=== PATIENT | female | born 1945 | race Caucasian/White ===

== ENCOUNTER 2017-12-23 12:47 | Emergency (ER) | payer OTHER ==
[~2017-12-23] VITALS: Ht 152.4 cm; Wt 59.0 kg
[~2017-12-23 12:47] MED LIST: ASPI81TA25 PO; CHLOTAB PO; EPP3/2 IM; LPR25 PO; RANI75TA7 PO; RANITAB33 PO
[2017-12-23 12:58] VITALS: TEMP 36.4; Ht 152.4 cm; Wt 59.0 kg
[2017-12-23] MEDS ORDERED: SODIUM CHLORIDE 0.9% 1000ML 1,000 ML IV STA (14:25)
--- NOTE | 2017-12-23 14:32 | EMERGENCY ROOM VISIT NOTE ---
History Report prepared by Jorge: Fermin Kebede Under the Supervision of: Dr. Fan Perez M.D. First contact with patient: 14:16 Chief Complaint: DIZZY Stated Complaint: CAN'T FOCUS, LIGHT HEADED, REFERRED BY DOC Nursing Triage Summary: pt states blurred vision and dizziness intermittent for the past week. Pt denies n/v, denies numbness or weakness, states right eye droop from . No neurological deficits noted. History of Present Illness The patient is a 72 year old female who presents to the Emergency Room with complaints of intermittent dizziness that began about 1 week ago. 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 Over this week, she has been intermittently feeling episodes of lightheadedness and some blurry vision whenever she stands or walks around. However, today this sensation has been constant since she woke up. She also has a headache which she describes as a pressure to the front of her head. She denies any palpitations, chest pain, shortness of breath, abdominal pain, weakness, or numbness. She denies any difficulty swallowing or speaking. She has been keeping up with her fluids. She denies any history of diabetes or any blood thinner use. She notes that over the past three weeks she has been having an intermittent fever with a cough as well. She denies any ear pain or ringing. Source of History: patient, spouse/significant other Onset: 1 week ago Position: other (global) Symptom Intensity: moderate Quality: other (Dizziness) Timing: intermittent Modifying Factors (Worsening): exertion (walking), movement (standing) Associated Symptoms: + fevers, + cough, No chest pain, No SOB, No abdominal pain, No weakness, No numbness Note: She has some mild blurring of her vision. Review of Systems See HPI for pertinent positives & negatives. A total of 10 systems reviewed and were otherwise negative. Past Medical & Surgical Medical Problems: (1) Congenital abnormality of eye Old medical records were reviewed. Nurse's notes were reviewed and I agree with. Family History Omitted secondary to the patient's age. Social History Smoking Status: Never Smoker Smokeless Tobacco Use: No Alcohol Use: none Drug Use: none Marital Status: in relationship Housing Status: lives alone Occupation Status: retired Current/Historical Medications Scheduled Amoxicillin & Pot Clavulanate (Augmentin 875-125 mg), 875 MG PO BID Scheduled PRN Epinephrine (Epipen 2-Tayo), 1 INJ IM Allergies Coded Allergies: BEE STING (Verified Allergy, Severe, THROAT SWELLING, 12/23/17) Physical Exam Vital Signs Date Time Temp Pulse Resp B/P (MAP) Pulse Ox O2 Delivery O2 Flow Rate FiO2 12/23/17 16:41 60 19 143/72 94 12/23/17 14:47 60 19 12/23/17 14:31 143/72 12/23/17 14:17 64 17 94 12/23/17 14:01 148/79 12/23/17 13:47 65 9 94 12/23/17 13:31 131/76 12/23/17 13:22 68 12/23/17 13:17 140/79 12/23/17 12:58 36.4 69 16 150/76 95 Physical Exam General: Non-ill appearing older female in no acute distress. HEENT: Normal cephalic atraumatic. There is a baseline droop with mild dysconjugate gaze to the right eye from 3 previous surgeries. Pupils are equal round and reactive to light. Extraocular movements are intact. Oropharynx is pink with moist mucous membranes. No swelling of the mouth lips or tongue. Neck: Supple with a midline trachea. No meningeal signs or stiffness, no JVD or bruits. No Stridor. Chest: Clear to auscultation bilaterally. No wheezes or rhonchi. No increased work of breathing. Heart: regular rate and rhythm. Abdomen: Soft nontender, nondistended without rebound guarding or rigidity. Extremities: No cyanosis clubbing or edema. No calf tenderness or assymetry Spine/Back. Non tender to palpation. No CVA tenderness Skin: Good turgor without rashes. Neurologic exam: Cranial nerves two through 12 are intact. Motor and sensation are intact and symmetrical throughout. Medical Decision & Procedures ER Provider Diagnostic Interpretation: Radiology results as stated below per my review and radiologist interpretation: HEAD WITHOUT CONTRAST (CT) CLINICAL HISTORY: 72 years-old Female presenting with eval for headache, dizzy. TECHNIQUE: Multidetector CT imaging of the head was performed without the use of intravenous contrast. IV contrast: None. A dose lowering technique was used consistent with the principles of ALARA (as low as reasonably achievable). COMPARISON: 07/02/2013. CT DOSE (mGy.cm): The estimated cumulative dose is 690.05 mGycm. 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 Ventricles and sulci normal in size. Brain parenchyma normal in appearance with preserved weinstein-white differentiation. No mass effect or midline shift. No hemorrhage or acute territorial infarct. No extra-axial fluid collection. Paranasal sinuses and mastoid air cells clear. Calvarium intact. IMPRESSION: 1. No acute intracranial abnormality. Electronically signed by: Carlos June M.D. 12/23/2017 3:08 PM Dictated Date/Time: 12/23/2017 3:06 PM Laboratory Results 12/23/17 14:46 Red Blood Count 4.86, Mean Corpuscular Volume 88.7, Mean Corpuscular Hemoglobin 30.7, Mean Corpuscular Hemoglobin Concent 34.6, Mean Platelet Volume 9.8, Neutrophils (%) (Auto) 55.8, Lymphocytes (%) (Auto) 36.4, Monocytes (%) (Auto) 5.6, Eosinophils (%) (Auto) 1.7, Basophils (%) (Auto) 0.2, Neutrophils # (Auto) 5.00, Lymphocytes # (Auto) 3.26, Monocytes # (Auto) 0.50, Eosinophils # (Auto) 0.15, Basophils # (Auto) 0.02 12/23/17 14:46 Test 12/23/17 14:46 White Blood Count 8.96 K/uL (4.8-10.8) Red Blood Count 4.86 M/uL (4.2-5.4) Hemoglobin 14.9 g/dL (12.0-16.0) Hematocrit 43.1 % (37-47) Mean Corpuscular Volume 88.7 fL (80-100) Mean Corpuscular Hemoglobin 30.7 pg (25-34) Mean Corpuscular Hemoglobin Concent 34.6 g/dl (32-36) Platelet Count 335 K/uL (130-400) Mean Platelet Volume 9.8 fL (7.4-10.4) Neutrophils (%) (Auto) 55.8 % Lymphocytes (%) (Auto) 36.4 % Monocytes (%) (Auto) 5.6 % Eosinophils (%) (Auto) 1.7 % Basophils (%) (Auto) 0.2 % Neutrophils # (Auto) 5.00 K/uL (1.4-6.5) Lymphocytes # (Auto) 3.26 K/uL (1.2-3.4) Monocytes # (Auto) 0.50 K/uL (0.11-0.59) Eosinophils # (Auto) 0.15 K/uL (0-0.5) Basophils # (Auto) 0.02 K/uL (0-0.2) RDW Standard Deviation 46.3 fL (36.4-46.3) RDW Coefficient of Variation 14.2 % (11.5-14.5) Immature Granulocyte % (Auto) 0.3 % Immature Granulocyte # (Auto) 0.03 K/uL (0.00-0.02) Prothrombin Time 10.4 SECONDS (9.0-12.0) Prothromb Time International Ratio 1.0 (0.9-1.1) Activated Partial Thromboplast Time 28.9 SECONDS (21.0-31.0) Partial Thromboplastin Ratio 1.1 Anion Gap 8.0 mmol/L (3-11) Est Creatinine Clear Calc Drug Dose 57.6 ml/min Estimated GFR () 97.7 Estimated GFR (Non- 84.3 BUN/Creatinine Ratio 14.6 (10-20) Calcium Level 8.9 mg/dl (8.5-10.1) Total Bilirubin 0.2 mg/dl (0.2-1) Direct Bilirubin < 0.1 mg/dl (0-0.2) Aspartate Amino Transf (AST/SGOT) 10 U/L (15-37) Alanine Aminotransferase (ALT/SGPT) 18 U/L (12-78) Alkaline Phosphatase 75 U/L (45-117) Total Creatine Kinase 47 U/L (26-192) Creatine Kinase MB 1.1 ng/ml (0.5-3.6) Creatine Kinase MB Ratio 2.3 (0-3.0) Troponin I < 0.015 ng/ml (0-0.045) Total Protein 8.2 gm/dl (6.4-8.2) Albumin 3.8 gm/dl (3.4-5.0) Lipase 117 U/L (73-393) Laboratory studies as stated above per my review. Medications Administered Medications (Trade) Dose Ordered Sig/Isabella Route Start Time Stop Time Status Last Admin Dose Admin Sodium Chloride 1,000 ml @ 999 mls/hr Q1H1M STAT IV 12/23/17 14:25 12/23/17 15:25 DC 12/23/17 15:04 999 MLS/HR Amoxicillin/ Clavulanate Potassium (Augmentin Tab) 875 mg ONE ONCE PO 12/23/17 16:15 12/23/17 16:16 DC 12/23/17 16:15 875 MG ECG Per My Interpretation Indication: other (Dizziness) Rate (beats per minute): 67 Rhythm: normal sinus Findings: no acute ischemic change, other (No PVC, poor r-wave progression) Comparison ECG Date: Jul 02, 2013 Change: no significant change ED Course 1416: Past medical records reviewed. The patient was evaluated in room C1, and a complete history and physical examination were performed. 1425: Ordered Sodium Chloride 1000 ml @ 999 mls/hr IV 1611: The patient informed me that she has been having a lot of sinus congestion , which I then told her that this could be contributing to her dizziness. 1615: Ordered Augmentin Tab 875 mg PO 1630: Upon reevaluation, the patient is resting. I discussed the results and treatment plan with her. She verbalized agreement of the treatment plan. The patient was discharged home. Medical Decision Differentials include, but are not limited to; arrhythmia, anemia, intracranial process, infection, and electrolyte or metabolic abnormality. This patient comes in as described above. She was placed in room C1. She is here for treatment evaluation of dizziness. She feels lightheaded occasionally when she stands. She has a history of ablation and tachycardia of some sort in the past but has not felt any chest pain or shortness of breath. She has had a lot of sinus symptoms and wonders if it could be related to that. She looks well on exam and has a baseline normal neurologic exam for her. CAT scan of the head is unremarkable. EKG shows no evidence to suggest acute coronary syndrome or arrhythmia. She has no acute electrolyte or metabolic abnormalities. She feels much better would like to go home. I will put her on Augmentin for possible sinus disease and have her rest and drink plenty of fluids and follow-up with her regular doctor. At this point there is no evidence to suggest arrhythmia or significant cardiac disease or neurologic process. She desires to go home and will be discharged with close follow-up with her primary doctor. Medication Reconcilliation Current Medication List: was personally reviewed by me Blood Pressure Screening Patient's blood pressure: Elevated blood pressure Blood pressure disposition: Elevated BP felt to be situational Impression Primary Impression: Dizziness Additional Impression: Sinusitis Scribe Attestation The scribe's documentation has been prepared under my direction and personally reviewed by me in its entirety. I confirm that the note above accurately reflects all work, treatment, procedures, and medical decision making performed by me. Departure Information Dispostion Home / Self-Care Prescriptions Amoxicillin & Pot Clavulanate (Augmentin 875-125 mg) 1 Tab Tab 875 MG PO BID for 10 Days, #20 TAB Prov: Fan Perez M.D. 12/23/17 Referrals Rosa Pritchett M.D. (PCP) Forms HOME CARE DOCUMENTATION FORM, IMPORTANT VISIT INFORMATION Patient Instructions My [facility] Additional Instructions Rest. Drink plenty of fluids. Return if: Increasing pain, worsening of symptoms, fever or chills, any new problems or concerns. Use Augmentin 875 mg twice a day for 10 days. You also use a decongestant. Problem Qualifiers
[2017-12-23 15:03] LABS: BASO % 0.2 %; BASO ABS # 0.02 K/uL (0-0.2); EOS % 1.7 %; EOS ABS # 0.15 K/uL (0-0.5); HEMATOCRIT 43.1 % (37-47); HEMOGLOBIN 14.9 g/dL (12.0-16.0); IG# 0.03 K/uL (0.00-0.02); LYMPH % 36.4 %; LYMPH ABS # 3.26 K/uL (1.2-3.4); MEAN CELL VOLUME 88.7 fL (80-100); MEAN CORPUSCULAR HEMOGLOBIN 30.7 pg (25-34); MEAN CORPUSCULAR HGB CONC 34.6 g/dl (32-36); MEAN PLATELET VOLUME 9.8 fL (7.4-10.4); MONO % 5.6 %; NEUT % 55.8 %; PLATELET COUNT 335 K/uL (130-400); RED CELL DISTRIBUTION WIDTH CV 14.2 % (11.5-14.5); RED CELL DISTRIBUTION WIDTH SD 46.3 fL (36.4-46.3); WHITE BLOOD COUNT 8.96 K/uL (4.8-10.8)
--- NOTE | 2017-12-23 15:09 | DIAGNOSTIC IMAGING REPORT ---
HEAD WITHOUT CONTRAST (CT) CLINICAL HISTORY: 72 years-old Female presenting with eval for headache, dizzy. TECHNIQUE: Multidetector CT imaging of the head was performed without the use of intravenous contrast. IV contrast: None. A dose lowering technique was used consistent with the principles of ALARA (as low as reasonably achievable). COMPARISON: 07/02/2013. CT DOSE (mGy.cm): The estimated cumulative dose is 690.05 mGycm. 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 Ventricles and sulci normal in size. Brain parenchyma normal in appearance with preserved weinstein-white differentiation. No mass effect or midline shift. No hemorrhage or acute territorial infarct. No extra-axial fluid collection. Paranasal sinuses and mastoid air cells clear. Calvarium intact. IMPRESSION: 1. No acute intracranial abnormality. Electronically signed by: Carlos June M.D. 12/23/2017 3:08 PM Dictated Date/Time: 12/23/2017 3:06 PM
[2017-12-23 15:12] LABS: PTT PATIENT 28.9 SECONDS (21.0-31.0)
[2017-12-23 15:20] LABS: ALBUMIN 3.8 gm/dl (3.4-5.0); BLOOD UREA NITROGEN 10 mg/dl (7-18); CALCIUM 8.9 mg/dl (8.5-10.1); CARBON DIOXIDE 24 mmol/L (21-32); GLUCOSE 88 mg/dl (70-99); LIPASE 117 U/L (73-393); POTASSIUM 3.7 mmol/L (3.5-5.1); SODIUM 137 mmol/L (136-145)
[2017-12-23 15:22] LABS: ALT/SGPT 18 U/L (12-78); AST/SGOT 10 U/L (15-37); CREATININE 0.72 mg/dl (0.60-1.20)
[2017-12-23 15:31] LABS: ALKALINE PHOSPHATASE 75 U/L (45-117); CKMB 1.1 ng/ml (0.5-3.6); TOTAL PROTEIN 8.2 gm/dl (6.4-8.2)
[2017-12-23] MEDS ORDERED: AMOX875T PO (16:14)
[2017-12-23] MEDS ORDERED: AMOXICILLIN/CLAVULANATE TAB 875 MG TAB PO ONE (16:15)
[2017-12-23 16:41] VITALS: BP 143/72; PULSE 60; O2SAT 94
== END 2017-12-23 16:41 | disposition home or self-care (01) ==
LOC: C.EDB 12:49 → C.EDC 16:41
DX: R42 Dizziness and giddiness (principal); J32.9 Chronic sinusitis, unspecified; Z91.030 Bee allergy status

== ENCOUNTER 2019-04-19 23:57 | Inpatient (IN) ==
--- OUTSIDE RECORDS SUMMARY | 2019-04-20 | External Medical Summary | Continuity of Care Document ---
:1945 Author Name Juanis Duke Address Unavailable Unavailable , Care Team Providers Name Role Phone Unavailable Unavailable Unavailable [place] Unavailable Unavailable Problems Active medical history not documented Allergies and Adverse Reactions Allergy history not documented Medications Medications not documented Procedures Procedures not documented Immunizations Immunizations not documented Plan of Treatment Planned Observations Planned Goals not documented Results No Known Results Results not documented
[2019-04-20] MEDS ORDERED: SODIUM CHLORIDE 0.9% 1000ML 1,000 ML IV SCH (00:15)
[2019-04-20 00:26] LABS: Basophils # (auto) 0.01 K/uL (0-0.2); Basophils % (auto) 0.1 %; Eosinophils # (auto) 0.12 K/uL (0-0.5); Eosinophils % (auto) 1.4 %; Hematocrit (blood only) 44.5 % (37-47); Hemoglobin 15.4 g/dL (12.0-16.0); Immature Granulocytes # (auto) 0.02 K/uL (0.00-0.02); Immature Granulocytes % (auto) 0.2 %; Lymphocytes # (auto) 3.73 K/uL (1.2-3.4); Lymphocytes % (auto) 43.5 %; Mean Corpuscular Hgb Conc 34.6 g/dL (32-36); Mean Corpuscular Volume 88.8 fL (80-100); Mean Platelet Volume 10.2 fL (7.4-10.4); Monocytes # (auto) 0.68 K/uL (0.11-0.59); Monocytes % (auto) 7.9 %; Neutrophils # (auto) 4.02 K/uL (1.4-6.5); Neutrophils % (auto) 46.9 %; Platelet Count 297 K/uL (130-400); RDW Coefficient of Variation 14.6 % (11.5-14.5); RDW Standard Deviation 47.3 fL (36.4-46.3); Red Blood Count 5.01 M/uL (4.2-5.4); White Blood Count 8.58 K/uL (4.8-10.8)
[2019-04-20 00:31] LABS: Prothrombin Time 10.1 Seconds (9.0-12.0)
[2019-04-20 00:44] LABS: Alanine Aminotransferase 23 U/L (12-78); Albumin Level 3.8 gm/dl (3.4-5.0); Aspartate Aminotransferase 17 U/L (15-37); BUN Creatinine Ratio 13.4 (10-20); Bilirubin Direct < 0.1 mg/dl (0-0.2); Blood Urea Nitrogen 11 mg/dl (7-18); Carbon Dioxide 25 mmol/L (21-32); Chloride 105 mmol/L (98-107); Est GFR (African American) 86.7; Est GFR (Non-African American) 74.8; Glucose 100 mg/dl (70-99); Magnesium 2.3 mg/dl (1.8-2.4); Potassium 3.7 mmol/L (3.5-5.1); Sodium 137 mmol/L (136-145)
[2019-04-20 00:49] LABS: Alkaline Phosphatase 95 U/L (45-117); Bilirubin,Total 0.3 mg/dl (0.2-1); Total Protein 7.8 gm/dl (6.4-8.2); Troponin I < 0.015 ng/ml (0-0.045)
[2019-04-20] MEDS ORDERED: ASPIRIN CHEW 324 MG PO STA (01:57)
--- NOTE | 2019-04-20 02:41 | History & Physical Report ---
Date of Service April 20, 2019 Assessment & Plan (1) TIA (transient ischemic attack): hx old CVA on CAT scan initially Hypertension, elevated secondary to intracranial process paroxysmal VT status post ablation nonocclusive CAD as per records hyperlipidemia, not on statin Rx prediabetes, most recent outpatient hemoglobin A1c of 6 last July 2016 ongoing tobacco abuse Medical telemetry Neurochecks MRI/MRA of the brain RE TIA symptoms Aspirin for secondary stroke prevention until new stroke definitively ruled out. Neurology consult RE transient right-sided numbness, weakness Permissive hypertension for now update lipid profile, hemoglobin A1c Nicotine patch PRN DVT prophylaxis. Lovenox subcu Full code History of Present Illness Chief Complaint: Right-sided numbness, weakness Primary Care Provider: Rosa Pritchett MD History obtained from patient and records. Medical history significant for paroxysmal VT status post ablation, nonocclusive CAD as per records, hyperlipidemia, prediabetes, ongoing tobacco abuse, congenital ptosis right status post surgery. 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 Nonocclusive CAD on cardiac cath during confinement. Patient was driving yesterday afternoon when she noticed right sided numbness, weakness. Seem harder to stepped on the gas pedal. No chest pain, no S OB. No blurred vision. No previous episodes. At the ER, patient given aspirin. Symptoms currently improving except for some right finger numbness. 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 Allergies Allergy/AdvReac Type Severity Reaction Status Date / Time bee venom protein (honey bee) Allergy Severe THROAT Verified 04/20/19 03:06 SWELLING Home Medications Home Medications Medication Instructions Recorded Confirmed Type chlorpheniramine-phenylephrine 2 tab PO HS 04/20/19 04/20/19 History [Suphedrine PE Sinus andAllergy] epinephrine [EpiPen] 0.3 mg IM UD PRN 04/20/19 04/20/19 History ranitidine HCl [Zantac] 150 mg PO DAILY 04/20/19 04/20/19 History Past Med/Surg History Medical History Sinus congestion (Acute) GERD (gastroesophageal reflux disease) (Chronic) No pertinent family history Surgical History No pertinent past surgical history Social History Preferred Language: Trinidadian Communication Ability: Effective Weigher Packing Required: No Beliefs That Will Affect Care: None Current Living Situation: Alone Other Information That Helps Us Care for You: No Feels Safe at Home: Yes Safety Concerns: Feels Safe At This Time Smoking Status: Never smoker Hx Alcohol Use: No Hx Substance Use: No Review of Systems Review of Systems: As per HPI, all 10 systems reviewed, all other ROS negative Physical Exam Physical Exam: GENERAL: Comfortable, pleasant, no respiratory distress SKIN: Normal color, warm HEENT: [place] palpebral conjunctivae, chronic ptosis R, moist buccal mucosa NECK : Supple, no tenderness CHEST : CTA, no tenderness HEART : RRR, no obvious murmurs ABDOMEN: Some distention, nontender EXTREMITIES : No LE swelling/tenderness, no other conspicuous deformities noted NEUROLOGIC : Coherent, no facial asymmetry, chronic ptosis right, right palmar grasp slightly weaker than the left, no pronator drift, equal MMTs both lower extremities, gait and stance not assessed Results & Data Vital Signs (Past 12 Hours) Vital Signs Temp Pulse Pulse Resp BP BP Pulse Ox 04/20/19 02:30 74 21 165/94 H 99 04/20/19 02:00 74 16 165/105 H 97 04/20/19 01:30 74 16 140/76 97 04/20/19 01:00 75 16 161/82 H 95 04/20/19 00:51 76 74 20 155/79 H 155/79 H 95 04/20/19 00:35 79 13 155/104 H 93 04/20/19 00:30 77 19 04/20/19 00:14 79 16 174/95 H 94 04/20/19 00:11 76 19 95 04/19/19 23:59 36.7 C 81 20 166/107 H 97 Laboratory Results Laboratory Results WBC 8.58 K/uL (4.8-10.8) 04/20/19 00:12 RBC 5.01 M/uL (4.2-5.4) 04/20/19 00:12 Hgb 15.4 g/dL (12.0-16.0) 04/20/19 00:12 Hct 44.5 % (37-47) 04/20/19 00:12 MCV 88.8 fL (80-100) 04/20/19 00:12 MCH 30.7 pg (25-34) 04/20/19 00:12 MCHC 34.6 g/dL (32-36) 04/20/19 00:12 RDW Std Deviation 47.3 fL (36.4-46.3) H 04/20/19 00:12 RDW Coeff of [place] 14.6 % (11.5-14.5) H 04/20/19 00:12 Plt Count 297 K/uL (130-400) 04/20/19 00:12 MPV 10.2 fL (7.4-10.4) 04/20/19 00:12 Immature Gran % (Auto) 0.2 % 04/20/19 00:12 Neut % (Auto) 46.9 % 04/20/19 00:12 Lymph % (Auto) 43.5 % 04/20/19 00:12 [place] % (Auto) 7.9 % 04/20/19 00:12 Eos % (Auto) 1.4 % 04/20/19 00:12 Baso % (Auto) 0.1 % 04/20/19 00:12 Immature Gran # (Auto) 0.02 K/uL (0.00-0.02) 04/20/19 00:12 Neut # (Auto) 4.02 K/uL (1.4-6.5) 04/20/19 00:12 Lymph # (Auto) 3.73 K/uL (1.2-3.4) H 04/20/19 00:12 [place] # (Auto) 0.68 K/uL (0.11-0.59) H 04/20/19 00:12 Eos # (Auto) 0.12 K/uL (0-0.5) 04/20/19 00:12 Baso # (Auto) 0.01 K/uL (0-0.2) 04/20/19 00:12 PT 10.1 Seconds (9.0-12.0) 04/20/19 00:12 INR 1.0 (0.9-1.1) 04/20/19 00:12 Sodium 137 mmol/L (136-145) 04/20/19 00:12 Potassium 3.7 mmol/L (3.5-5.1) 04/20/19 00:12 Chloride 105 mmol/L (98-107) 04/20/19 00:12 Carbon Dioxide 25 mmol/L (21-32) 04/20/19 00:12 Anion Gap 7.0 (3-11) 04/20/19 00:12 BUN 11 mg/dl (7-18) 04/20/19 00:12 Creatinine 0.79 mg/dl (0.6-1.2) 04/20/19 00:12 Est Cr Clr Drug Dosing Not Reportable 04/20/19 00:12 Est GFR ( Amer) 86.7 04/20/19 00:12 Est GFR (Non-Af Amer) 74.8 04/20/19 00:12 BUN/Creatinine Ratio 13.4 (10-20) 04/20/19 00:12 Glucose 100 mg/dl (70-99) H 04/20/19 00:12 Calcium 9.0 mg/dl (8.5-10.1) 04/20/19 00:12 Magnesium 2.3 mg/dl (1.8-2.4) 04/20/19 00:12 Total Bilirubin 0.3 mg/dl (0.2-1) 04/20/19 00:12 Direct Bilirubin < 0.1 mg/dl (0-0.2) 04/20/19 00:12 AST 17 U/L (15-37) 04/20/19 00:12 ALT 23 U/L (12-78) 04/20/19 00:12 Alkaline Phosphatase 95 U/L (45-117) 04/20/19 00:12 Troponin I < 0.015 ng/ml (0-0.045) 04/20/19 00:12 Total Protein 7.8 gm/dl (6.4-8.2) 04/20/19 00:12 Albumin 3.8 gm/dl (3.4-5.0) 04/20/19 00:12 Lipase 133 U/L (73-393) 04/20/19 00:12 TSH 2.040 uIu/ml (0.300-4.500) 04/20/19 00:[address] Head initial read: No acute intracranial abnormality. Volume loss, small vessel disease. Old lacunar infarct right caudate/lee radiata. Chest X-ray as per my interpretation no infiltrate EKG as per my interpretation : Rate 80, NSR, incomplete right bundle branch block, diffuse T wave flattening
[2019-04-20] MEDS ORDERED: D5NSS + 20MEQ KCL 20 MEQ/1,000 ML BAG IV STA (03:20)
[2019-04-20] MEDS ORDERED: NITROGLYCERIN SL 0.4 MG/TAB TAB SL PRN (03:20)
[2019-04-20] MEDS ORDERED: PROMETHAZINE HCL 12.5 MG in SODIUM CHLORIDE 0.9% 50 ML IV PRN (03:20)
[2019-04-20] MEDS ORDERED: PHARMACIST DISCHARGE MED REC CONSULT PRN (03:20)
[2019-04-20] MEDS ORDERED: ACETAMINOPHEN 325 MG TAB PO PRN (03:20)
[2019-04-20] MEDS ORDERED: NICOTINE 21 MG/24 HR TDSY TD PRN (03:20)
--- NOTE | 2019-04-20 06:26 | XRay Report ---
XR chest 1V portable CLINICAL HISTORY: Stroke, smoker mental status change COMPARISON STUDY: 06/30/2013 FINDINGS: The bones soft tissues and hemidiaphragms are normal. The cardiomediastinal silhouette is n ormal. The lungs are clear. The pulmonary vasculature is normal. IMPRESSION: Negative chest. The above report was generated using voice recognition software. It may contain grammatical, syntax or spelling errors. Electronically signed by: Mark Resendez M.D. 04/20/2019 6:25 AM
--- NOTE | 2019-04-20 06:33 | Magnetic Resonance Report ---
MRI OF THE BRAIN WITHOUT CONTRAST CLINICAL HISTORY: Transient ischemic attack COMPARISON STUDY: CT scan dated 04/20/2019 FINDINGS: Sagittal T1, axial diffusion, proton density and T2 weighted axial, coronal FLAIR, and axial T1-weigh maria fernanda images were acquired. No intra or extra-axial mass lesions are visualized There is a 4 mm restricted water diffusion within the left lateral thalamus. There is no evidence of ventricular dilatation. Proton density T2-weighted and FLAIR images reveal scattered foci of increased T2 signal within the w carlos matter, likely on a small vessel basis. There is an old infarct involving the right periventricu lar deep white matter. There are no abnormal flow voids. IMPRESSION: 1. 4 mm focus of restricted water diffusion within the left lateral thalamus, consistent with a small acute/subacute infarct 2. No evidence of intracranial mass on this noncontrast study Electronically signed by: Yohannes Travis M.D. 04/20/2019 6:32 AM
--- NOTE | 2019-04-20 06:34 | Emergency Department Note ---
Entered by Guy Palmer acting as a scribe for Alexis Ruffin MD ED Provider Note Name: Jessica Muhammad Age: 73 F Arrives Via: personal transportation Informant: patient CC: Right sided weakness HPI: The patient is a 73 y/o female who presents to the emergency department for evaluation of intermittent right arm and leg weakness that began 10 hours ago and persisted. The patient states that she was driving home this afternoon when she began having issues pressing on the gas consistently and issues steering. She notes that she waited to come to the emergency department because she believed it would go away. The patient reports that she does not have a headache but there has been pressure in her head. Notes she feels like she can't see straight at times. The patient notes that she has a history of GERD, sinus congestion, heart ablation, and takes Zantac and Sudafed. She denies nausea, vo miting, chest pain, diarrhea, and any other symptoms. Nothing makes symptoms better nor worse. No medications prior to arrival. No history of Stroke per patient. She admits long history of smoking. ROS: See above HPI for pertinent positives & negatives. A total of 10 systems reviewed and were otherwise negative. Past Medical History: GERD, Sinus congestion Past Surgical History: No pertinent past surgical history Family History: No pertinent family history Social History: everyday smoker Home Medications: epinephrine Allergies Bee venom protein Physical: Vitals: BP 165/94, HR 74, TEMP 98.1, RESP 21, O2 99. Exam: GENERAL: Patient is well appearing and in no acute distress. EYES: No scleral icterus, unremarkable pupils. ENT: Mucous membranes moist, no nasal congestion. NECK: No masses appreciated, no meningismus, trachea is midline. RESPIRATORY: No dyspnea. Clear to auscultation and equal bilaterally. No wheeze, no rhonchi. CARDIOVASCULAR: Regular rate and rhythm. No murmurs, rubs, gallops appreciated. GASTROINTESTINAL: Abdomen soft, non-tender, no peritonitis. Bowel sounds positive. No masses appreciated. BACK: No midline tenderness, no CVA tenderness EXTREMITIES: Normal motion all extremities, no cyanosis, no edema. NEUROLOGIC: Alert and oriented, no acute motor or sensory deficits, no focal weakness, cranial nerves grossly intact. Droop of right eyelid (chronic). Mild weakness of right hand, primarily adduction of right thumb, perceived decreased sensation of right hand SKIN: No rash, no jaundice, no diaphoresis. ED Course: Prior Medical Record, Triage/Nursing Notes, Medications, Allergies reviewed by Me Vital Signs: reviewed and remarkable for HTN Labs: Reviewed and remarkable for normal cbc/bmp/inr/trop Interventions: ASA 324mg PO Imaging: Radiology results as stated below per my review and the radiologist's interpretation: CT HEAD without contrast No evidence of acute intracranial abnormality or skull fracture. Volume loss and small vessel disease. 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 Consults: 0200: I spoke with dr. Anne Burk hospitalist Reassessments/Times: 0004: The patient was evaluated in room B04B. A complete history and physical exam was performed. 0157: I checked on patient she has resolution of symptoms she hipolito willing to come into hospital to rule out stroke. 0200: I spoke with dr. Anne Burk hospitalist. He will evaluate for further symptoms. Blood pressure: Elevated - Referred to Hospitalist Disposition: Hospitalization Differentials: Stroke/TIA, dissection, intracranial mass, intracranial hemorrhage, electrolyte imbalance, meningitis, cervical radiculopathy amongst other pathologies. Medical Decision Makin yr old smoker arrival with intermittent right arm/leg weakness over the last 10+ hours. Essentially benign exam other than mild right thumb weakness. Not Stroke alert criteria nor TPA candidate. She had CT head which reveals old lacunar infarct which she states she was unaware of. She has unremarkable labs. Moderated hypertensive though will allow persistent given concern stroke. ASA given PO. She will come in for further management and evaluation. Impression: TIA (transient ischemic attack) The scribe's documentation has been prepared under my direction and personally reviewed by me in its entirety. I confirm that the note above accurately reflects all work, treatment, procedures, and medical decision making performed by me. 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 Beliefs That Will Affect Care: None Current Living Situation: Alone Other Information That Helps Us Care for You: No Feels Safe at Home: Yes Safety Concerns: Feels Safe At This Time Smoking Status: Never smoker Hx Alcohol Use: No Hx Substance Use: No Results & Data Vital Signs Vital Signs - 24 hr 04/19/19 23:59 04/20/19 00:11 04/20/19 00:14 Temperature 36.7 C Temperature Source Oral Sepsis Recent Fever Within 48 Hours No Sepsis Action Taken by Nursing No Action Required Pulse Rate 81 76 79 Pulse Rate [Right Finger] Pulse Rate from SpO2 Sensor 76 78 Respiratory Rate 20 19 16 Respiratory Effort / Characteristics Non-Labored Respiratory Depth Normal Blood Pressure 166/107 H 174/95 H Blood Pressure [Left Arm] Blood Pressure Mean 126 121 Blood Pressure Mean [Left Arm] Pulse Oximetry 97 95 94 Oxygen Delivery Method Room Air 04/20/19 00:30 04/20/19 00:35 04/20/19 00:51 Temperature Temperature Source Sepsis Recent Fever Within 48 Hours Sepsis Action Taken by Nursing Pulse Rate 77 79 76 Pulse Rate [Right Finger] 74 Pulse Rate from SpO2 Sensor 79 77 Respiratory Rate 19 13 20 Respiratory Effort / Characteristics Respiratory Depth Blood Pressure 155/104 H 155/79 H Blood Pressure [Left Arm] 155/79 H Blood Pressure Mean 121 104 Blood Pressure Mean [Left Arm] 104 Pulse Oximetry 93 95 Oxygen Delivery Method 04/20/19 01:00 04/20/19 01:30 04/20/19 02:00 Temperature Temperature Source Sepsis Recent Fever Within 48 Hours Sepsis Action Taken by Nursing Pulse Rate 75 74 74 Pulse Rate [Right Finger] Pulse Rate from SpO2 Sensor 75 74 75 Respiratory Rate 16 16 16 Respiratory Effort / Characteristics Respiratory Depth Blood Pressure 161/82 H 140/76 165/105 H Blood Pressure [Left Arm] Blood Pressure Mean 108 97 125 Blood Pressure Mean [Left Arm] Pulse Oximetry 95 97 97 Oxygen Delivery Method 04/20/19 02:30 Temperature Temperature Source Sepsis Recent Fever Within 48 Hours Sepsis Action Taken by Nursing Pulse Rate 74 Pulse Rate [Right Finger] 74 Pulse Rate from SpO2 Sensor 74 Respiratory Rate 21 Respiratory Effort / Characteristics Non-Labored Respiratory Depth Normal Blood Pressure 165/94 H Blood Pressure [Left Arm] 165/94 H Blood Pressure Mean 117 Blood Pressure Mean [Left Arm] 117 Pulse Oximetry 99 Oxygen Delivery Method Room Air Home Medications Current Medication List: was personally reviewed by me Laboratory Data Attestation: I reviewed the patient's lab results. Result diagrams: 04/20/19 00:12 04/20/19 00:12 Lab Results 04/20/19 04/20/19 04/20/19 Range/Units 00:12 00:12 00:12 WBC 8.58 (4.8-10.8) K/uL RBC 5.01 (4.2-5.4) M/uL Hgb 15.4 (12.0-16.0) g/dL Hct 44.5 (37-47) % MCV 88.8 (80-100) fL MCH 30.7 (25-34) pg MCHC 34.6 (32-36) g/dL RDW Std Deviation 47.3 H (36.4-46.3) fL RDW Coeff of Edmar 14.6 H (11.5-14.5) % Plt Count 297 (130-400) K/uL MPV 10.2 (7.4-10.4) fL Immature Gran % (Auto) 0.2 % Neut % (Auto) 46.9 % Lymph % (Auto) 43.5 % [place] % (Auto) 7.9 % Eos % (Auto) 1.4 % Baso % (Auto) 0.1 % Immature Gran # (Auto) 0.02 (0.00-0.02) K/uL Neut # (Auto) 4.02 (1.4-6.5) K/uL Lymph # (Auto) 3.73 H (1.2-3.4) K/uL [place] # (Auto) 0.68 H (0.11-0.59) K/uL Eos # (Auto) 0.12 (0-0.5) K/uL Baso # (Auto) 0.01 (0-0.2) K/uL PT 10.1 (9.0-12.0) Seconds INR 1.0 (0.9-1.1) Sodium 137 (136-145) mmol/L Potassium 3.7 (3.5-5.1) mmol/L Chloride 105 (98-107) mmol/L Carbon Dioxide 25 (21-32) mmol/L Anion Gap 7.0 (3-11) BUN 11 (7-18) mg/dl Creatinine 0.79 (0.6-1.2) mg/dl Est Cr Clr Drug Dosing Not Reportable Est GFR ( Amer) 86.7 Est GFR (Non-Af Amer) 74.8 BUN/Creatinine Ratio 13.4 (10-20) Glucose 100 H (70-99) mg/dl Calcium 9.0 (8.5-10.1) mg/dl Magnesium 2.3 (1.8-2.4) mg/dl Total Bilirubin 0.3 (0.2-1) mg/dl Direct Bilirubin < 0.1 (0-0.2) mg/dl AST 17 (15-37) U/L ALT 23 (12-78) U/L Alkaline Phosphatase 95 (45-117) U/L Troponin I < 0.015 (0-0.045) ng/ml Total Protein 7.8 (6.4-8.2) gm/dl Albumin 3.8 (3.4-5.0) gm/dl Lipase 133 (73-393) U/L TSH 2.040 (0.300-4.500) uIu/ml Administered Medications Potassium Chloride/Dextrose/Sod Cl (D5nss + 20meq Kcl) 20 meq in 1,000 mls @ 60 mls/hr IV .[id number] STA Stop: 04/20/19 19:59 Last Infusion: 04/20/19 06:10 Dose: 60 mls/hr Documented by: [id number] Infusion: 04/20/19 05:07 Dose: 0 mls/hr Documented by: [id number] Admin: 04/20/19 04:05 Dose: 60 mls/hr Documented by: [id number] Discontinued Medications Aspirin (Aspirin) 324 mg PO NOW STA Stop: 04/20/19 01:58 Last Admin: 04/20/19 02:05 Dose: 324 mg Documented by: [id number] Sodium Chloride (Nss 1000ml) 1,000 mls @ 80 mls/hr IV .[id number] [place] Stop: 05/20/19 00:14 Last Infusion: 04/20/19 03:24 Dose: 0 mls/hr Documented by: [id number] Infusion: 04/20/19 03:23 Dose: 0 mls/hr Documented by: [id number] Admin: 04/20/19 00:35 Dose: 80 mls/hr Documented by: [id number] Imaging Data Radiologist's Impression: Radiology results as stated below per my review and th e radiologist's interpretation: CT HEAD without contrast No evidence of acute intracranial abnormality or skull fracture. Volume loss and small vessel disease. 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 Blood Pressure Blood Pressure Findings: Elevated blood pressure Blood Pressure Disposition: further management by hospitalist Discharge Plan Visit Data *Final* Discharge Date/Time: 04/20/19 02:56 Chief Complaint: Neuro Symptoms/Deficit Stated Complaint: RT ARM AND LEG WENT NUMB,LEG DID NOT WANT TO BEND ED Provider: Alexis Ruffin Discharge Problem: TIA (transient ischemic attack) Patient Disposition: Admitted As Inpatient Discharge Instructions Interventions: ED Discharge Assessment Last Done: 04/20/19 02:56 The scribe's documentation has been prepared under my direction and personally reviewed by me in its entirety. I confirm that the note above accurately reflects all work, treatment, procedures, and medical decision making performed by me.
--- NOTE | 2019-04-20 06:47 | CT Scan Report ---
CT head/brain wo con CT DOSE: 537.48 mGy.cm HISTORY: Mental status change right sided weakness x 7+ hours TECHNIQUE: Multiaxial CT images of the head were performed without the use of intravenous contrast. A dose lowering technique was utilized adhering to the principles of ALARA. Comparison: 12/23/2017 Findings: The paranasal sinuses and mastoid air cells are clear. The calvarium and skull base are int act. The ventricles and sulci are within normal limits. There is no mass, hematoma, midline shift, or acute infarct. Small old right periventricular infarct. No evidence for acute intracranial hemorrhag e. Impression: No acute processes. Chronic change as described. The above report was generated using voice recognition software. It may contain grammatical, syntax or spelling errors. Electronically signed by: Mark Resendez M.D. 04/20/2019 6:46 AM
--- NOTE | 2019-04-20 06:55 | Magnetic Resonance Report ---
MR ANGIOGRAPHY OF THE TELLER OF [place] NO CONTRAST CLINICAL HISTORY: Acute stroke COMPARISON STUDY: None. A 3-D [id number] MR angiographic sequence of the [place] of [place] was performed. Both the source and projection images were reviewed. There is no evidence of major intracranial branch occlusion. There is no evidence of intracranial janet nosis. There are no lesions suspicious for aneurysm. There are minor intracranial atherosclerotic latricia nges. IMPRESSION: 1. Minimal anterior cranial at this chronic changes 2. No evidence of aneurysm 3. No evidence of major intracranial branch occlusion Electronically signed by: Yohannes Travis M.D. 04/20/2019 6:54 AM
[2019-04-20 07:46] LABS: Chol HDL Ratio 4; Cholesterol 194 mg/dl (0-200); HDL Cholesterol 44 mg/dl; LDL Cholesterol Calculated 134 mg/dl; Triglycerides 81 mg/dl (0-150); VLDL Cholesterol 16 mg/dl
--- NOTE | 2019-04-20 08:51 | Ultrasound Report ---
ULTRASOUND OF THE CAROTID ARTERIES CLINICAL HISTORY: Stroke. COMPARISON STUDY: Carotid artery ultrasound dated 06/30/2013. TECHNIQUE: Real-time, grayscale, and color Doppler sonography of the carotid arteries is performed. I mages are reviewed in the transverse and longitudinal planes. FINDINGS: Blood pressures were not assessed due to limb restrictions. The carotid arteries are patent bilaterally and demonstrate antegrade flow. There is minimal atherosc lerotic plaque seen in the carotid bulbs. Normal doppler arterial waveforms are seen throughout. [facility] measurements are listed below. Common carotid peak systolic velocity (cm/sec): RIGHT: 70 LEFT: 65 ICA proximal peak systolic velocity (cm/sec): RIGHT: 50 LEFT: 73 ICA mid peak systolic velocity (cm/sec): RIGHT: 58 LEFT: 64 ICA distal peak systolic velocity (cm/sec): RIGHT: 64 LEFT: 80 ICA/CC peak systolic ratio: RIGHT: 0.9 LEFT: 1.2 Antegrade flow was shown in the vertebral arteries. The external carotid arteries are patent. IMPRESSION: 1. There is no sonographic evidence of hemodynamically significant stenosis in the right or left burks tid arterial system. 2. Antegrade flow is shown in the vertebral arteries. Electronically signed by: Rickey Shen M.D. 04/20/2019 8:50 AM
[2019-04-20] MEDS ORDERED: ATORVASTATIN 20 MG TAB PO SCH (09:00)
[2019-04-20 09:57] LABS: Estimated Average Glucose 134 mg/dl; Hemoglobin A1C 6.3 % (4.5-5.6)
[2019-04-20] MEDS: ENOXAPARIN INJ 30 MG/0.3 ML SYR SQ SCH (10:03)
[2019-04-20] MEDS: AMLODIPINE BESYLATE 5 MG TAB PO SCH (13:17)
--- NOTE | 2019-04-20 15:19 | Communication Note ---
Date of Service: April 20, 2019 I have seen Mrs. Muhammad today, reviewed her laboratory studies, her imaging studies and performed a neurologic examination. Para she has a chronic cigaret te smoker, has marginal dyslipidemia, prediabetes and I suspect some mild essential hypertension but has taken no active medications for these problems and has not been on antiplatelet agents In this setting she presents with transient paresthesias involving the right arm and right leg and some vague visual disturbances Imaging studies have shown a very small left melo-thalamic infarction which would be consistent with her symptoms and old deep right hemispheric small vessel event which also would be consistent with what I think is primary small vessel disease Vascular imaging studies and an echocardiogram have shown nothing of significance and certainly no evidence for an embolic source Her blood pressure remains slightly elevated but at this point were going up allow some permissive hypertension for the next 5 to 7 days Exam is quite normal revealing no significant motor or sensory findings including an absence of sensory loss involving the right arm and leg and only reveals 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 She should see neurology in about 6 weeks as part of the routine post CVA follow-up. She needs to take a baby aspirin a day. I am not going to treat her with dual antiplatelet therapy as she was not on single antiplatelet therapy prior to this event. She needs to see her primary care physician for assessment and perhaps initiation of risk modification treatment with antihypertensive, statins, dietary advice and ideally smoking cessation but I am not optimistic she will do the latter Full consultation has been dictated but this note to be sufficient at this time to summarize a neurology findings and recommendations Prosper Leiva MD
--- NOTE | 2019-04-20 16:24 | Consultation Report ---
DATE OF CONSULTATION: 04/20/2019 CONSULTATION FOR: Dr. Zhao Luo. HISTORY OF PRESENT ILLNESS: The patient is 73 years old, is a patient of Dr. Rosa Pritchett, suffers from coronary artery disease, dyslipidemia, is prediabetic and has a chronic cigarette consumption history dating back to age 17. In addition to a longstanding amblyopia of the right eye, post multiple surgical procedures over the years to correct the exotropia with a resultant ptosis and loss of visual acuity. She presented with several hours of right arm and leg paresthesias and a very brief duration of obscured vision, which was ill-defined and very brief duration onset yesterday afternoon about 3:00 and persisting for several hours, but not to the point that it prevented her from driving from [place] to [place] and on to [place] and finally to her home where a significant other suggested strongly that she go to the ER for evaluation and she did this about midnight at which point the symptoms had largely resolved. She subsequently had a CAT scan that showed evidence for what looked like an old infarction deep in the right hemisphere and comparison with a prior CT scan done several years ago shows that this was an interval development, but it did not explain her symptoms and a subsequent MRI has shown a very small left thalamic infarction which would explain the numbness of her right arm and right leg that has now resolved. It could also explain some vague visual symptoms as often thalamic infarctions are associated with all sorts of diplopia phenomenon, etc. Whatever the case, she was appropriately started on aspirin, which she was not taking and she has been observed for hypertension which she had on admission and still is up a bit, but as noted in the plan, we are going to allow this to be a little bit up for the next week or so. She was given a nicotine patch, DVT prophylaxis with Lovenox and her neurologic symptoms have again been stable. 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 PAST SURGICAL HISTORY: Surgically, she has had a hemorrhoidectomy, several procedures on the right eye and oviduct removal. She has also had several uncomplicated pregnancies. FAMILY HISTORY: Positive for COPD, uterine cancer, diabetes, stroke and heart disease. SOCIAL HISTORY: Reveals a 1 pack a day cigarette smoking since age 17, occasional alcohol. 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 ALLERGIES: TO BEE VENOM. MEDICATIONS: The only medication she takes at home include Sudafed sinus, EpiPen, ranitidine and her issues with hypertension and prediabetes apparently are relatively new and have not been treated medically. REVIEW OF SYSTEMS: Reveals no real systemic complaints. No fevers, sweats, chills, significant weight change. No new visual complaints other than the chronic reduced vision in the right eye and ptosis of the same. She has had no vertigo, dizziness, tinnitus. The only visual issue she had was the transient blurriness of vision at the time she had the stroke, but otherwise there has been no migraine phenomena and certainly no headaches. She denies any cardiovascular, pulmonary, gastrointestinal, genitourinary, musculoskeletal, dermatologic or hematologic issues other than those noted related to her past medical history and current illness. PHYSICAL EXAMINATION: Her blood pressure was slightly elevated about 170/80 and remains about this point. She was well-developed, well-nourished, did not appear to be any acute distress. Examination of the head, eyes, ears, nose and throat, neck, chest, cardiac, abdomen and extremities are recorded as normal and peripheral pulses were good. Today, neurologically she is awake, alert, oriented in 3 spheres. She has a mild ptosis of the right lid which increases with adduction of the right eye to the left and opens a bit with abduction to the right, but is not associated with any clearcut ocular dysmotility, pupillary abnormality, but it is associated with a slight subjective reduced visual acuity in the right eye. Visual saldana are full. Facial motility and strength is normal. Facial sensation is normal. Speech is clear. I do not hear any carotid bruits. There is no drift, pronation, tremor, tics or choreiform activity and strength is good. Reflexes are 1+ symmetrical. Toes are downgoing. No Yahaira signs are seen and sensory examination is absolutely normal to vibration, light touch, temperature and there is no evidence for sensory neglect. LABORATORY STUDIES: Show no significant abnormalities. At this point, imaging studies have confirmed the presence of a small deep acute thalamic infarct and evidence for prior old right deep small vessel event which was asymptomatic and some scattered high T2 intensity signals consistent with microvascular disease and her age. Angiographic studies have shown no intracranial stenoses. Duplex of the carotids are normal and an echocardiogram shows no evidence for potential embolic source. At this point, I concur with the plan to use aspirin only as an antiplatelet drug as she was aspirin naive and I see no reason to use dual antiplatelet therapy at this time unless she would have recurrent events. I think we need to see her in 6 weeks' time to assess how she is doing and she needs to get in touch with her primary care physician and have her blood pressure monitored and perhaps some risk factor modification instituted with more attention to her lipids and perhaps initiation of an CARI inhibitor such as lisinopril for some blood pressure control, but these decisions are going to rest with Dr. Pritchett, not Neurology. We will probably continue the aspirin indefinitely as a single baby aspirin a day at this time. I would hold her until tomorrow as sometimes his deep small vessel events will have recurrent TIAs associated with them, but generally after 24-36 hours of symptom free time, the odds of this occurring are pretty minimal, so she and I reached an agreement that I will okay discharge tomorrow morning if the Internal Medicine people find nothing else to treat of concern. Bottom line is we need to see her in Neurology in about 6 weeks. She needs to continue aspirin. She needs to see her primary care physician for management of her dyslipidemia and hypertension and probably would need to defer on operating motor vehicle for at least 5-7 days until the stability of her current symptoms is established. NEDA
--- NOTE | 2019-04-20 16:37 | Hospitalist Progress Note ---
Date of Service April 20, 2019 Assessment & Plan (1) Stroke: acute stroke -symptoms right sided numbness, weakness on 04/19/19 -patient started on aspirin, continue aspirin 81 mg daily -Brain MRI imaging on 04/20/19 AM confirmed stroke as a 4 mm focus of restricted water diffusion within the left lateral thalamus, consistent with a small acute/subacute infarct -Neurology recommendations 04/20/19: keep patient on monitoring in the hospital until tomorrow morning observing her for recurrent TIA-like symptoms that can occur with localized deep small vessel disease right eye droop -chronic Hyperlipidemia -will give total of 40 mg atorvastatin daily starting on 04/20/19 Prediabetes -HBA1c 6.3 -advise cutting back on simple sugars from diet paroxysmal VT status post ablation in the past -currently normal sinus rhythm nonocclusive CAD as per records -awaiting echocardiogram results Smoking history -recommend smoking cessation -Nicotine patch as a form as smoking cessation DVT prophylaxis. Lovenox subcu Full code Subjective Patient seen and examined today. strength is symmetric on both sides. patient able to do finger to nose test. denies currently of any arm numbness or tingling sensations. no chest pain. no shortness of breath. no vomiting. Physical Exam Constitutional: WD/WN, vitals as above Eyes: PERRL, conjunctivae normal, anicteric sclerae EOM intact bilaterally (right eye droop is chronic) ENMT: external ear and nose normal, oropharynx normal Neck: trachea midline, no thyromegaly normal visual inspection Respiratory: normal respiratory effort, lungs clear to auscultation Cardiovascular: RRR, no murmur, no edema Gastrointestinal (Abdomen): normal bowel sounds, soft, nontender, no hepatosplenomegaly Musculoskeletal: no cyanosis or clubbing, extremities motor strength 5/5 Head/Neck/Chest: normocephalic and head atraumatic Neurologic: PERRL, EOMI, accommodation nl, no face palsy, no dysarthria CN's II-XI intact bilaterally Psychiatric: A+Ox3, euthymic affect Results & Data Vital Signs (Past 12 Hours) Vital Signs Temp Pulse Resp BP Pulse Ox 04/20/19 15:37 36.7 C 73 16 151/78 H 92 04/20/19 15:16 92 04/20/19 11:32 37.1 C 70 16 164/83 H 93 04/20/19 07:03 36.5 C 66 18 171/84 H 95
[2019-04-20] MEDS ORDERED: ATORVASTATIN 20 MG TAB PO ONE (17:30)
[2019-04-21 07:10] LABS: Basophils # (auto) 0.03 K/uL (0-0.2); Basophils % (auto) 0.3 %; Eosinophils # (auto) 0.18 K/uL (0-0.5); Eosinophils % (auto) 1.9 %; Hematocrit (blood only) 45.6 % (37-47); Hemoglobin 15.7 g/dL (12.0-16.0); Immature Granulocytes # (auto) 0.03 K/uL (0.00-0.02); Immature Granulocytes % (auto) 0.3 %; Lymphocytes # (auto) 4.32 K/uL (1.2-3.4); Lymphocytes % (auto) 46.7 %; Mean Corpuscular Hgb Conc 34.4 g/dL (32-36); Mean Corpuscular Volume 89.6 fL (80-100); Mean Platelet Volume 10.2 fL (7.4-10.4); Monocytes # (auto) 0.61 K/uL (0.11-0.59); Monocytes % (auto) 6.6 %; Neutrophils # (auto) 4.08 K/uL (1.4-6.5); Neutrophils % (auto) 44.2 %; Platelet Count 310 K/uL (130-400); RDW Coefficient of Variation 14.5 % (11.5-14.5); RDW Standard Deviation 47.4 fL (36.4-46.3); Red Blood Count 5.09 M/uL (4.2-5.4); White Blood Count 9.25 K/uL (4.8-10.8)
[2019-04-21] MEDS: ENOXAPARIN INJ 30 MG/0.3 ML SYR SQ SCH (07:31)
[2019-04-21] MEDS: AMLODIPINE BESYLATE 5 MG TAB PO SCH (07:32)
[2019-04-21] MEDS ORDERED: ASPIRIN 81 MG ECTAB PO SCH (09:00)
[2019-04-21] MEDS ORDERED: ATORVASTATIN 40 MG TAB PO SCH (09:00)
[2019-04-21] MEDS ORDERED: ASPIRIN 325 MG ECTAB PO SCH (09:00)
[2019-04-21] MEDS ORDERED: STROKE PATIENT DISCHARGE STA (10:16)
--- NOTE | 2019-04-21 10:19 | Hospitalist Progress Note ---
Date of Service April 21, 2019 Assessment & Plan (1) Stroke: acute stroke -symptoms right sided numbness, weakness on 04/19/19 -patient started on aspirin, continue aspirin 81 mg daily -Brain MRI imaging on 04/20/19 AM confirmed stroke as a 4 mm focus of restricted water diffusion within the left lateral thalamus, consistent with a small acute/subacute infarct -Neurology recommendations 04/20/19: keep patient on monitoring in the hospital until tomorrow morning observing her for recurrent TIA-like symptoms that can occur with localized deep small vessel disease -04/21/19: similar to 04/20/19, the patient has no focal neurological deficits (Discharge Instructions Patient has diagnosis of stroke Patient should take aspirin 81 mg daily and atorvastatin 40 mg daily Discussed with patient that she has pre-diabetes and should avoid excessive sugars in diet and discuss with primary care doctor Patient should take amlodipine 5 mg daily and follow up with primary care doctor for blood pressure checks Patient should smoking. She reports of having nicotine patches at home. additional nicotine patches prescribed Follow up with Neurology clinic in June 13, 2019 Appointments Primary Care 04/25/2019 1:00 PM Provider Rosa Pritchett MD Department Family [facility] 05/10/2019 9:00 AM Provider Lab [facility], [facility] 05/10/2019 9:30 AM Provider Desiree Carballo PA-C Department [facility] 05/10/2019 11:30 AM Provider [address] Department Radiology [address] Neurology clinic 06/13/2019 10:25AM Provider Kimberly Holt PA-C Department Neurology [facility] ) right eye droop -chronic Hyperlipidemia -will give total of 40 mg atorvastatin daily starting on 04/20/19 -continue as outpatient Prediabetes -HBA1c 6.3 -advise cutting back on simple sugars from diet paroxysmal VT status post ablation in the past -currently normal sinus rhythm nonocclusive CAD as per records -awaiting echocardiogram results Tobacco use Smoking history -recommend smoking cessation -Nicotine patch as a form as smoking cessation DVT prophylaxis. Lovenox subcu Full code Discharge Diagnosis acute stroke (symptoms right sided numbness, weakness on 04/19/19; Brain MRI imaging on 04/20/19 AM confirmed stroke as a 4 mm focus of restricted water diffusion within the left lateral thalamus, consistent with a small acute/subacute infarct), Hypertension,Hyperlipidemia, prediabetes, Tobacco Use Subjective Patient with no acute telemetry events overnight. No dizziness. no chest pain. shortness of breath. no abdomen pain. no vomiting. ambulatory. similar to 04/20/19, the patient has no focal neurological deficits. we discussed discharge plans and follow ups. Physical Exam Constitutional: WD/WN, vitals as above Eyes: PERRL, conjunctivae normal, anicteric sclerae EOM intact bilaterally (right eye droop is chronic) ENMT: external ear and nose normal, oropharynx normal Neck: trachea midline, no thyromegaly normal visual inspection Respiratory: normal respiratory effort, lungs clear to auscultation Cardiovascular: RRR, no murmur, no edema Gastrointestinal (Abdomen): normal bowel sounds, soft, nontender, no hepatosplenomegaly Musculoskeletal: no cyanosis or clubbing, extremities motor strength 5/5 Head/Neck/Chest: normocephalic and head atraumatic Neurologic: PERRL, EOMI, accommodation nl, no face palsy, no dysarthria CN's II-XI intact bilaterally Psychiatric: A+Ox3, euthymic affect Results & Data Vital Signs (Past 12 Hours) Vital Signs Temp Pulse Pulse Resp BP Pulse Ox 04/21/19 07:15 36.5 C 71 20 136/75 95 04/21/19 04:59 36.7 C 71 20 150/88 H 92 04/20/19 23:45 71 04/20/19 23:43 37.1 C 81 20 148/71 H 92
--- NOTE | 2019-04-21 10:22 | Discharge Summary ---
Date of Service April 21, 2019 Admission HPI Per Admitting Provider History obtained from patient and records. Medical history significant for paroxysmal VT status post ablation, nonocclusive CAD as per records, hyperlipidemia, prediabetes, ongoing tobacco abuse, congenital ptosis right status post surgery. 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 Nonocclusive CAD on cardiac cath during confinement. Patient was driving yesterday afternoon when she noticed right sided numbness, weakness. Seem harder to stepped on the gas pedal. No chest pain, no S OB. No blurred vision. No previous episodes. At the ER, patient given aspirin. Symptoms currently improving except for some right finger numbness. 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 Admission Exam Per Admitting Provider GENERAL: Comfortable, pleasant, no respiratory distress SKIN: Normal color, warm HEENT: Lenora palpebral conjunctivae, chronic ptosis R, moist buccal mucosa NECK : Supple, no tenderness CHEST : CTA, no tenderness HEART : RRR, no obvious murmurs ABDOMEN: Some distention, nontender EXTREMITIES : No LE swelling/tenderness, no other conspicuous deformities noted NEUROLOGIC : Coherent, no facial asymmetry, chronic ptosis right, right palmar grasp slightly weaker than the left, no pronator drift, equal MMTs both lower extremities, gait and stance not assessed Principal Diagnosis acute stroke (symptoms right sided numbness, weakness on 04/19/19; Brain MRI imaging on 04/20/19 AM confirmed stroke as a 4 mm focus of restricted water diffusion within the left lateral thalamus, consistent with a small acute/subacute infarct), Hypertension,Hyperlipidemia, prediabetes, Tobacco Use Discharge Exam Constitutional WD/WN, vitals as above Eyes PERRL, conjunctivae normal, anicteric sclerae EOM intact bilaterally (right eye droop is chronic) ENMT external ear and nose normal, oropharynx normal Neck trachea midline, no thyromegaly normal visual inspection Respiratory normal respiratory effort, lungs clear to auscultation Cardiovascular RRR, no murmur, no edema Gastrointestinal (Abdomen) normal bowel sounds, soft, nontender, no hepatosplenomegaly Musculoskeletal no cyanosis or clubbing, extremities motor strength 5/5 Head/Neck/Chest: normocephalic and head atraumatic Neurologic PERRL, EOMI, accommodation nl, no face palsy, no dysarthria CN's II-XI intact bilaterally Psychiatric A+Ox3, euthymic affect Discharge Data Allergies Allergy/AdvReac Type Severity Reaction Status Date / Time bee venom protein (honey bee) Allergy Severe THROAT Verified 04/20/19 03:06 SWELLING Consultations 04/20/19 01:57 ED Decision to Admit Stat 04/20/19 03:20 Consult Case Management - Discharge Planning Routine Consult Neurology Routine Ordered Studies 04/20/19 00:09 CT head/brain wo con Urgent 04/20/19 03:20 MR angio head wo con Routine MR brain wo con Routine 04/20/19 06:43 US carotid doppler BI Routine Hospital Course (1) Stroke: acute stroke -symptoms right sided numbness, weakness on 04/19/19 -patient started on aspirin, continue aspirin 81 mg daily -Brain MRI imaging on 04/20/19 AM confirmed stroke as a 4 mm focus of restricted water diffusion within the left lateral thalamus, consistent with a small acute/subacute infarct -Neurology recommendations 04/20/19: keep patient on monitoring in the hospital until tomorrow morning observing her for recurrent TIA-like symptoms that can occur with localized deep small vessel disease -04/21/19: similar to 04/20/19, the patient has no focal neurological deficits (Discharge Instructions Patient has diagnosis of stroke Patient should take aspirin 81 mg daily and atorvastatin 40 mg daily Discussed with patient that she has pre-diabetes and should avoid excessive sugars in diet and discuss with primary care doctor Patient should take amlodipine 5 mg daily and follow up with primary care doctor for blood pressure checks Patient should smoking. She reports of having nicotine patches at home. additional nicotine patches prescribed Follow up with Neurology clinic in June 13, 2019 Appointments Primary Care 04/25/2019 1:00 PM Provider Rosa Pritchett MD Department [facility] 05/10/2019 9:00 AM Provider Lab [facility] Laboratory, [facility] 05/10/2019 9:30 AM Provider Desiree Carballo PA-C Department [facility] 05/10/2019 11:30 AM [facility] Rad[facility]st [facility] Neurology clinic 06/13/2019 10:25AM Provider Kimberly Holt PA-C Department Neurology [facility] ) right eye droop -chronic Hyperlipidemia -will give total of 40 mg atorvastatin daily starting on 04/20/19 -continue as outpatient Prediabetes -HBA1c 6.3 -advise cutting back on simple sugars from diet paroxysmal VT status post ablation in the past -currently normal sinus rhythm nonocclusive CAD as per records -awaiting echocardiogram results Tobacco use Smoking history -recommend smoking cessation -Nicotine patch as a form as smoking cessation DVT prophylaxis. Lovenox subcu Full code Discharge Diagnosis acute stroke (symptoms right sided numbness, weakness on 04/19/19; Brain MRI imaging on 04/20/19 AM confirmed stroke as a 4 mm focus of restricted water diffusion within the left lateral thalamus, consistent with a small acute/subacute infarct), Hypertension,Hyperlipidemia, prediabetes, Tobacco Use Total Time Total Time Spent Total Time Spent (In Minutes): 40 minutes Total Time Includes: Examination of the Patient, Discharge Planning, Medication Reconciliation and Communication With Other Providers Discharge Plan Discharge Items Patient Disposition: Home - Self-Care Reason For Visit: TIA Discharge Diagnosis: acute stroke (symptoms right sided numbness, weakness on 04/19/19; Brain MRI imaging on 04/20/19 AM confirmed stroke as a 4 mm focus of restricted water diffusion within the left lateral thalamus, consistent with a small acute/subacute infarct), Hypertension,Hyperlipidemia, prediabetes, Tobacco Use Condition: Good Discharge Goals: Improve disease control Activity: Resume your previous activity Non-emergency contact: Primary Care Provider Call non-emergency contact if: you have any medication questions Follow-up/Referrals: Rosa Pritchett MD [Primary Care Provider] - Diet: Carb Consistent or DM2 and Heart Healthy Addtl Provider Instructions: Patient has diagnosis of stroke Patient should take aspirin 81 mg daily and atorvastatin 40 mg daily Discussed with patient that she has pre-diabetes and should avoid excessive sugars in diet and discuss with primary care doctor Patient should take amlodipine 5 mg daily and follow up with primary care doctor for blood pressure checks Patient should smoking. She reports of having nicotine patches at home. additional nicotine patches prescribed Follow up with Neurology clinic in June 13, 2019 Appointments Primary Care 04/25/2019 1:00 PM Provider Rosa Pritchett MD Department Family [facility] 05/10/2019 9:00 AM Provider Lab [facility] Laboratory, [facility] 05/10/2019 9:30 AM Provider Desiree Carballo PA-C Department Family Practice [facility] 05/10/2019 11:30 AM Provider [email or web address] [facility] Radiology [facility]st [facility] Neurology clinic 06/13/2019 10:25AM Provider Kimberly Holt PA-C Department Neurology [facility] Prescriptions: New atorvastatin 40 mg Tablet 40 mg PO QAM 30 Days Qty: 30 RF: 0 amlodipine [Norvasc] 5 mg Tablet 5 mg PO QAM 30 Days Qty: 30 RF: 0 aspirin [Ecotrin Low Strength] 81 mg Tablet,Delayed Release (Dr/Ec) 81 mg PO QAM 30 Days Qty: 30 RF: 0 nicotine [Nicoderm CQ] 21 mg/24 hr Patch 24 Hour 21 mg transdermal QAM 30 Days Qty: 30 RF: 0 Continued epinephrine [EpiPen] 0.3 mg/0.3 mL Auto-Injector 0.3 mg IM UD PRN (Reason: Allergic Reaction) RF: 0 ranitidine HCl [Zantac] 150 mg Tablet 150 mg PO DAILY RF: 0 Discontinued Suphedrine PE Sinus andAllergy 4-10 mg Tablet 2 tab PO HS RF: 0 Stand-Alone Forms: [facility]/Other Patient Handouts: Prediabetes, Diabetes Meal Planning Discharge Orders: Discharge Order (Routine); Ordered 04/21/19 Ordered By: Zhao Luo Admission Data Admit Date/Time: 04/20/19 02:44 Attending Provider: Zhao Luo Admit Provider: Jas Rodríguez Primary Care Provider: Rosa Pritchett Other Providers: Jas Rodríguez ; Prosper Leiva Service: Telemetry Medical
== END 2019-04-21 11:04 | disposition home or self-care (01) | DRG 65 ==
LOC: ED 23:57 → 2N 04-20 02:44